=== PATIENT | female | born 1980 | race Caucasian/White ===

== ENCOUNTER 2019-06-12 08:15 | Emergency (ER) | payer OTHER ==
[2019-06-12 08:19] VITALS: BP 127/78
--- NOTE | 2019-06-12 08:57 | ER Document Report ---
HPI - HPI Time Seen by Provider: 06/12/19 08:40 Pain Level: 4 Notes: Patient is a 38-year-old female with a history of microdiscectomy to her low back, cholecystectomy, gastric sleeve who presents complaining of acute on chronic low back pain without injury or trauma x2 weeks. Patient states that the pain is primarily in the left side, but is bilateral. The pain does not radiate. Patient states that she has been having muscle spasm-like pain in the last couple days. Pain is worsened by bending and twisting of the trunk as well as sitting. She recently moved from different states and was lifting and moving objects. No history of IV drug abuse, diabetes, or spinal abscess. Denies drug allergies. She has been able to eat and drink without difficulty. She is urinating normally and having normal bowel movements. She did see a family doctor 2 weeks ago and had an x-ray performed at that time, but does not know the result. Denies any headache, fever, head injury, neck pain, changes in vision/speech/mentation/hearing, URI, sore throat, chest pain, palpitations, syncope, cough, shortness of breath, wheeze, dyspnea, abdominal pain, nausea/vomiting/diarrhea, urinary retention, dysuria, hematuria, loss of control of bowel or bladder, numbness/tingling, saddle anesthesia, muscle paralysis/weakness, or rash. - ROS Systems Reviewed and Negative: Yes All other systems reviewed and negative - REPRODUCTIVE Reproductive: DENIES: : Past Medical History - Social History Smoking Status: Never Smoker Family History: Reviewed & Not Pertinent Patient has suicidal ideation: No Patient has homicidal ideation: No Renal/ Medical History: Denies: Hx Peritoneal Dialysis Past Surgical History: Reports: Hx Neurologic Surgery - L-5 to S-1 microdiscectomy Vertical Provider Document - CONSTITUTIONAL Agree With Documented VS: Yes Notes: PHYSICAL EXAMINATION: GENERAL: Well-appearing, well-nourished and in no acute distress. LUNGS: Breath sounds clear to auscultation bilaterally and equal. No wheezes rales or rhonchi. HEART: Regular rate and rhythm without murmurs, rubs, gallops. ABDOMEN: Soft, nontender, nondistended abdomen. No guarding, no rebound. No masses appreciated. Normal bowel sounds present. No CVA tenderness bilaterally. No pulsatile mass Musculoskeletal: LE's b/l: FROM to passive/active. Strength 5+/5. No deficits noted. No bony tenderness of extremities. Back: FROM to passive/active. Strength 5+/5. No vertebral point tenderness, stepoffs, or deformities. No other bony tenderness, erythema, swelling, or ecchymosis. SLR negative b/l. + mild tenderness to the L-paraspinal mm b/l. Mild spasming with trigger point left side near L5. No SI jt tenderness. No foot drop Extremities: No cyanosis, clubbing, or edema b/l. Peripheral pulses 2+. Capillary refill less than 2 seconds. NEUROLOGICAL: Normal speech, normal gait. Normal sensory, motor exams. Reflexes 2+ b/l. PSYCH: Normal mood, normal affect. SKIN: Warm, Dry, normal turgor, no rashes or lesions noted. - INFECTION CONTROL TRAVEL OUTSIDE OF THE [place] IN LAST 30 DAYS: No Course - Re-evaluation Re-evalutation: 06/12/19 09:03 Patient is an afebrile, well-hydrated, 38-year-old female who presents to the ED with acute on chronic low back pain. Vitals are acceptable. PE is otherwise unremarkable for any focal neurological deficits. I did call Dr. Salcedo's office and reviewed with him the x-ray result which showed some spondylosis in the left side, otherwise unremarkable for acute pathology. Patient declined any and all medications or treatment for her discomfort. She has no significant tachycardia, tachypnea, or hypoxia. She is nontoxic-appearing and is tolerating p.o. without difficulties. There are no signs of infection. No other red flag symptoms noted. No other labs or imaging warranted at this time based on H&P. Low suspicion for any meningitis, fracture, expanding/ruptured AAA, cauda equina syndrome, epidural mass lesion/abscess, herniated disc causing severe spinal stenosis, or other systemic infection at this time. Patient is aware that his condition can change from initial presentation and that he needs monitor symptoms closely for any acute changes. Patient does not want any medications for home. Conservative measures otherwise for symptoms. Recheck with your PCM in 3-5 days. Consider consult with orthopedic/physical therapy. Return to the ED with any worsening/concerning symptoms otherwise as reviewed discharge. Patient is in agreement. - Vital Signs Vital signs: Temp Pulse Resp BP Pulse Ox 98.3 F 79 12 127/78 H 100 06/12/19 08:18 06/12/19 08:18 06/12/19 08:18 06/12/19 08:18 06/12/19 08:18 Discharge - Discharge Clinical Impression: Low back pain Qualifiers: Chronicity: acute Back pain laterality: bilateral Sciatica presence: without sciatica Qualified Code(s): M54.5 - Low back pain Condition: Stable Disposition: HOME, SELF-CARE Instructions: Low Back Pain ([facility]) Additional Instructions: Rest, Ice Tylenol/ibuprofen as needed Light stretches daily Strength exercises as able Moist heat and massage may help F/u with your PCP in 3-5 days for a recheck Consider consult(s) with Orthopedics/physical therapy for ongoing/worsening symptoms Return to the ED with any worsening symptoms and/or development of fever, headache, chest pain, palpitations, syncope, shortness of breath, trouble breathing, abdominal pain, n/v/d, blood in stool/urine, loss of control of bowel/bladder, urinary retention, muscle weakness/paralysis, saddle anesthesia, numbness/tingling, or other worsening symptoms that are concerning to you. Forms: Elevated Blood Pressure Referrals: [facility] ([facility]) [Provider Group] - Follow up as needed
== END 2019-06-12 09:05 | disposition home or self-care (01) ==
LOC: ER 08:15
DX: M54.5 Low back pain (principal); G89.29 Other chronic pain; Z98.84 Bariatric surgery status
CPT/HCPCS: 99283

== ENCOUNTER → 2019-12-07 | Outpatient (CLI) | payer OTHER ==
--- NOTE | 2019-12-07 14:56 | RADIOLOGY REPORT (SQ) ---
EXAM DESCRIPTION: MRI LUMBAR SPINE COMBO COMPLETED DATE/TIME: 12/07/2019 7:57 am REASON FOR STUDY: LUMBAR RADICULOPATHY (M54.16) M54.16 RADICULOPATHY, LUMBAR REGION COMPARISON: None. TECHNIQUE: Sagittal and Axial imaging includes T1, T1 post gadolinium, T2, STIR and gradient echo se quences. Coronal T2/HASTE imaging. CONTRAST TYPE AND DOSE: 10 mL Dotarem. RENAL FUNCTION: Not indicated. ACR Type II contrast agent associated with few, if any, unconfounded cases of NSF LIMITATIONS: None. FINDINGS: VISUALIZED UPPER ABDOMEN: Limited evaluation. No acute or suspicious findings suggested. SEGMENTATION: No transitional anatomy. The lowest well-developed disc space is labeled L5-S1. ALIGNMENT: Anatomic. VERTEBRAE: Intact. No fractures. BONE MARROW: Normal. No marrow replacement or reactive changes. DISC SIGNAL: Diffuse decreased T2 weighted intervertebral disc signal at L4-5. Disc space loss of he ight at L4-5 POSTERIOR ELEMENTS: Old right laminectomy at L4 HARDWARE: No disc space prosthesis. CORD AND CONUS: Normal in size and signal intensity. Conus at the T12 level. SOFT TISSUES: No aortic aneurysm seen. No bulky retroperitoneal adenopathy or mass. No paraspinal mas s or fluid. T11-12: At the upper edge of the field of view. Mild bilateral facet hypertrophy without central or foraminal stenosis. T12-L1: Mild bilateral facet hypertrophy without central or foraminal stenosis. L1-L2: Mild bilateral facet hypertrophy without significant central or foraminal stenosis L2-L3: Mild bilateral facet hypertrophy without significant central or foraminal stenosis L3-L4: Mild bilateral facet hypertrophy without significant central or foraminal stenosis. L4-L5: Old prior right laminectomy/partial facetectomy. There is a small central disc protrusion eff acing the ventral epidural fat and abutting the thecal sac at the takeoff of the bilateral L5 nerve r oots in the lateral recess. This is best shown on axial image . No significant central canal n arrowing or proximal right L5 nerve root impingement. Elsewhere at L4-5, there is mild bilateral inferior foraminal narrowing without exit L4 nerve root im pingement. L5-S1: No central or foraminal stenosis. SACRUM: Visualized upper sacrum intact. ENHANCEMENT: There is minimal enhancement along the posterior rightward L4-5 disc margin. No abnorma l nerve root enhancement. OTHER: No other significant findings. IMPRESSION: Old right laminectomy with persistent central posterior disc protrusion, flattening the thecal sac near the takeoff of the bilateral L5 nerve roots in the lateral recess TECHNICAL DOCUMENTATION: JOB ID: [id number] [employer]- All Rights Reserved Reading location - IP/workstation name: [email or web address]
== END ==
LOC: RAD 06:30
PROVIDERS: ATTEND Family Medicine
DX: M51.16 Intervertebral disc disorders with radiculopathy, lumbar region (principal)
CPT/HCPCS: 72158; A9576

== ENCOUNTER 2020-09-11 08:51 | Emergency (ER) | payer OTHER ==
[2020-09-11] MEDS ORDERED: HYDROCODONE/ACETAMINOPHEN 5-325 MG TABLET PO ONE (10:59)
--- NOTE | 2020-09-11 11:02 | ER Document Report ---
ED Medical Screen (RME) - General Chief Complaint: Tremor Stated Complaint: MUSCLE SPASMS Time Seen by Provider: 09/11/20 10:53 Primary Care Provider: ZHANNA LACEY MD [Primary Care Provider] - Follow up as needed Notes: Patient presents complaining of low back pain. Patient states she fell 4 weeks ago while trying to change a tire. Patient states that last night she got out of bed and her left leg gave out on her. Patient with lower back pain that radiates to the left lower extremity. Patient reports some urinary hesitancy symptoms. I have greeted and performed a rapid initial assessment of this patient. A comprehensive ED assessment and evaluation of the patient, analysis of test results and completion of the medical decision making process will be conducted by additional ED providers. TRAVEL OUTSIDE OF THE [place] IN LAST 30 DAYS: No - Related Data Allergies/Adverse Reactions: No Known Allergies Allergy (Verified 06/12/19 08:15) Past Medical History Renal/ Medical History: Denies: Hx Peritoneal Dialysis Past Surgical History: Reports: Hx Neurologic Surgery - L-5 to S-1 microdiscectomy Physical Exam - Vital signs Vitals: Temp Pulse Resp BP Pulse Ox 98.2 F 114 H 16 132/79 H 100 09/11/20 09:22 09/11/20 09:22 09/11/20 09:22 09/11/20 09:22 09/11/20 09:22 - Back Back: Vertebra tenderness - Lower lumbar tenderness, patient guards with attempts at standing. Course - Vital Signs Vital signs: Temp Pulse Resp BP Pulse Ox 98.2 F 114 H 16 132/79 H 100 09/11/20 09:22 09/11/20 09:22 09/11/20 09:22 09/11/20 09:22 09/11/20 09:22 Doctor's Discharge - Discharge Referrals: ZHANNA LACEY MD [Primary Care Provider] - Follow up as needed
--- NOTE | 2020-09-11 11:56 | RADIOLOGY REPORT (SQ) ---
EXAM DESCRIPTION: L SPINE WHOLE IMAGES COMPLETED DATE/TIME: 09/11/2020 11:43 am REASON FOR STUDY: low back pain, fall COMPARISON: None. NUMBER OF VIEWS: Five views including obliques. TECHNIQUE: AP, lateral, oblique, and sacral radiographic images acquired of the lumbar spine. LIMITATIONS: None. FINDINGS: MINERALIZATION: Normal. SEGMENTATION: Normal. No transitional anatomy. ALIGNMENT: Normal. VERTEBRAE: Maintained height. No fracture or worrisome bone lesion. DISCS: Degenerative disc disease with disc space narrowing L4-5 and L5-S1. POSTERIOR ELEMENTS: Pedicles and facets are intact. No pars defect or posterior arch defects. HARDWARE: None in the spine. PARASPINAL SOFT TISSUES: Normal. PELVIS: Intact as visualized. No fractures or worrisome bone lesions. SI joints intact. OTHER: No other significant finding. IMPRESSION: L4-5 and L5-S1 degenerative disc disease. TECHNICAL DOCUMENTATION: JOB ID: [id number] 2010 [employer]- All Rights Reserved Reading location - IP/workstation name: [email or web address]
[2020-09-11] MEDS ORDERED: LORAZEPAM INJ 2 MG/1 ML VIAL IV ONE (12:45)
[2020-09-11] MEDS ORDERED: KETOROLAC TROMETHAMINE INJ/PF 30 MG/1 ML SDV IV ONE (12:45)
[2020-09-11] MEDS ORDERED: DEXAMETHASONE SOD PHOS INJ 10 MG/1 ML VIAL IV ONE (12:49)
[2020-09-11 13:41] LABS: ABSOLUTE LYMPHOCYTES (AUTO) 0.5 10^3/uL (0.5-4.7); ABSOLUTE MONOCYTES (AUTO) 0.2 10^3/uL (0.1-1.4); ABSOLUTE NEUT (AUTO) 7.3 10^3/uL (1.7-8.2); BASOPHILS % (AUTO) 0.2 % (0-2); EOSINOPHILS % (AUTO) 0.2 % (0-6); HEMOGLOBIN 13.7 g/dL (12.0-15.5); LYMPHOCYTES % (AUTO) 6.2 % (13-45); MEAN CORPUSCULAR HGB CONC 36.1 g/dL (32.0-36.0); MEAN CORPUSCULAR VOLUME 83 fl (80-97); MONOCYTES % (AUTO) 2.6 % (3-13); PLATELET COUNT 250 10^3/uL (150-450); RED BLOOD COUNT 4.57 10^6/uL (3.72-5.28); RED CELL DISTRIBUTION WIDTH 13.2 % (11.5-14.0); SEGMENTED NEUTROPHILS % (AUTO) 90.8 % (42-78); TOTAL CELLS COUNTED % (AUTO) 100 %
[2020-09-11 13:43] LABS: ANION GAP 12 (5-19); BLOOD UREA NITROGEN 15 mg/dL (7-20); CALCIUM 10.2 mg/dL (8.4-10.2); CARBON DIOXIDE 25 mmol/L (22-30); CHLORIDE 100 mmol/L (98-107); GLUCOSE 100 mg/dL (75-110); POTASSIUM 3.9 mmol/L (3.6-5.0)
--- NOTE | 2020-09-11 15:02 | RADIOLOGY REPORT (SQ) ---
EXAM DESCRIPTION: MRI LUMBAR SPINE COMBO IMAGES COMPLETED DATE/TIME: 09/11/2020 2:34 pm REASON FOR STUDY: radicular pain LLE/ bladder dysfunction COMPARISON: Lumbar spine radiographs earlier same day and MRI lumbar spine 12/07/2019 TECHNIQUE: Sagittal and Axial imaging includes T1, T2, STIR and gradient echo sequences. Coronal T2/ HASTE imaging. LIMITATIONS: Moderate motion artifact is present on the axial sequences. FINDINGS: VISUALIZED UPPER ABDOMEN: Limited evaluation. No acute or suspicious findings suggested. SEGMENTATION: No transitional anatomy. The lowest well-developed disc space is labeled L5-S1. ALIGNMENT: Anatomic. VERTEBRAE: Intact. BONE MARROW: Normal. No marrow replacement or reactive changes. DISC SIGNAL: Moderate disc height loss at L4-L5 and to a lesser degree at L5-S1. POSTERIOR ELEMENTS: Generally intact. Previously described right laminotomy at L4-L5. No pars defe ct evident. HARDWARE: None in the spine. CORD AND CONUS: Normal in size and signal intensity. Conus at the appropriate level. SOFT TISSUES: No aortic aneurysm seen. No bulky retroperitoneal adenopathy or mass. No paraspinal mas s or fluid. L2-L3: Mild bilateral facet hypertrophy. No significant spinal stenosis or exit foraminal stenosis. L3-L4: Mild bilateral facet hypertrophy. No significant spinal stenosis or exit foraminal stenosis. L4-L5: There has been interval development of a large central/left central disc extrusion with inferi or migration of disc material extending approximately 1.4 cm caudally. This extruded disc material c ontacts the transiting left L5 nerve root in the subarticular zone. L5-S1: No significant spinal stenosis or exit foraminal stenosis. LOWER THORACIC: Incompletely imaged. No stenosis seen. SACRUM: Visualized upper sacrum intact. OTHER: No other significant findings. IMPRESSION: Large disc extrusion at L4-L5 with 1.4 cm of caudal migration of disc material contactin g the transiting left L5 nerve root in the subarticular zone. This patient may benefit from spine carlin rgery consultation. TECHNICAL DOCUMENTATION: JOB ID: [id number] 2010 [employer]- All Rights Reserved Reading location - IP/workstation name: [email or web address]
--- NOTE | 2020-09-11 15:32 | ER Document Report ---
ED General - General Chief Complaint: Back Pain Stated Complaint: MUSCLE SPASMS Time Seen by Provider: 09/11/20 10:53 Primary Care Provider: ZHANNA LACEY MD [Primary Care Provider] - Follow up as needed TRAVEL OUTSIDE OF THE [place] IN LAST 30 DAYS: No - HPI Notes: Chief complaint: Low back pain and left lower extremity pain History of present illness: The patient is a 40-year-old female who presented to the ER with severe left lower back pain. Pt reports a history of sciatica and microdisectomy to L5-S1 [place] 2016 [place] Pt says she has had 2 falls over the past 4 weeks. The first of these occurred when she was trying to change a tire by herself. Pt reports she was take by ambulance to [facility] and says she was not given an x-ray at that time and was just given pain medication upon discharge. Pt denies taking pain medication today. Currently states that she has had "giving way" of the left lower extremity today and says the entire extremity is numb. She also says she has had some urinary hesitancy. - Related Data Allergies/Adverse Reactions: No Known Allergies Allergy (Verified 06/12/19 08:15) Past Medical History - General Information source: Patient, [facility] Records - Social History Smoking Status: Never Smoker Chew tobacco use (# tins/day): No Frequency of alcohol use: None Drug Abuse: None Family History: Reviewed & Not Pertinent Renal/ Medical History: Denies: Hx Peritoneal Dialysis Past Surgical History: Reports: Hx Neurologic Surgery - L-5 to S-1 microdis cectomy Review of Systems - Review of Systems Notes: Constitutional: Negative for fever. HENT: Negative for sore throat. Eyes: Negative for visual changes. Cardiovascular: Negative for chest pain. Respiratory: Negative for shortness of breath. Gastrointestinal: Negative for abdominal pain, vomiting or diarrhea. Genitourinary: As per HPI. Musculoskeletal: As per HPI. Skin: Negative for rash. Neurological: As per HPI. 10 point ROS negative except as marked above and in HPI. Physical Exam - Vital signs Vitals: Temp Pulse Resp BP Pulse Ox 98.2 F 114 H 16 132/79 H 100 09/11/20 09:22 09/11/20 09:22 09/11/20 09:22 09/11/20 09:22 09/11/20 09:22 - Notes Notes: GENERAL: Slender female approximately stated age who appears to be in severe pain holding left lower back area and complaining of severe muscle spasm and pain into her left leg. SKIN: Good turgor no rashes. HEAD: Normocephalic atraumatic. EYES: PERRLA. EOMI. Conjunctivae and sclerae clear. EARS: CANALS AND TMS CLEAR. NOSE: CLEAR. MOUTH: Moist mucosa. Good dentition. No stridor or edema. No drooling. NECK: Supple. No masses or thyromegaly. No adenopathy. Carotids 2+ without bruits. No JVD. BACK: Moderate spasm left lumbar area. Straight leg raising test is positive at 15 degrees elevation on the left. CHEST: Respirations unlabored. Breath sounds clear and symmetrical. HEART: Regular rhythm. No murmur gallop or rub. ABDOMEN: Soft nontender without masses, organomegaly or rebound. Bowel sounds normally active. No bruits. GENITALIA: Deferred. EXTREMITIES: No edema. No calf tenderness. Cap refill less than 1.5 seconds. Dorsalis pedis and posterior tibial pulses 3+ and symmetrical. NEUROLOGICAL: GCS 15. Alert and oriented x3. Fluent speech. Cranial nerves II through XII intact. Sensation is diminished left lower extremity below the knee where she describes "[id number]" sensation. Deep tendon reflexes 1+ and symmetrical. Initial motor testing was unsatisfactory due to patient's level of pain. After she was medicated for pain she has preserved plantar flexion and dorsiflexion on the left with some weakness of extension of the knee on the left. Normal tone. PSYCHIATRIC: Appropriate affect. Course - Vital Signs Vital signs: Temp Pulse Resp BP Pulse Ox 98.6 F 86 18 135/83 H 98 09/11/20 15:11 09/11/20 15:11 09/11/20 15:11 09/11/20 15:11 09/11/20 15:11 - Laboratory Result Diagrams: 09/11/20 13:15 09/11/20 13:15 Laboratory results interpreted by me: 09/11/20 09/11/20 13:15 13:15 MCHC 36.1 H Lymph % (Auto) 6.2 L [place] % (Auto) 2.6 L Seg Neutrophils % 90.8 H Sodium 136.5 L Discharge - Discharge Clinical Impression: Sciatica Qualifiers: Laterality: left Qualified Code(s): M54.32 - Sciatica, left side Condition: Stable Disposition: HOME, SELF-CARE Additional Instructions: Sciatica Your symptoms suggest "sciatica." The pain of sciatica typically radiates down the leg. Numbness in the foot or calf may also occur. Sciatica is caused by irritation of the sciatic nerve or its branches. The irritation can be due to a herniated disk in the spine, swelling and inflammation in the muscles surrounding the sciatic nerve, or direct injury of the nerve itself. Most cases of sciatica will resolve with medical treatment. Bed rest is usually recommended initially. Surgery is only necessary when the condition will not improve with rest and antiinflammatory medication. Muscle relaxers are often given if muscle soreness is present. A CAT scan of the back may be performed if a herniated disk is suspected. Re-examination is necessary if you develop increasing numbness, localized weakness in the foot or ankle, or if the pain does not respond to rest. Return here as needed for new or worsening symptoms: Pain that is worsening or unimproved Uncontrolled vomiting High fever or shaking chills Overall worsening Contact Dr. Grimes consist neurosurgery) at the neurosurgery clinic at [facility] for follow-up this week. Prescriptions: Prednisone [Deltasone 20 mg Tablet] 2 tab PO DAILY 5 Days tablet Cyclobenzaprine HCl [Flexeril 10 mg Tablet] 10 mg PO TIDP PRN #15 tab PRN Reason: Oxycodone HCl/Acetaminophen [Percocet 5-325 mg Tablet] 2 tab PO ASDIR PRN #25 tab PRN Reason: Referrals: ZHANNA LACEY MD [Primary Care Provider] - Follow up as needed
[2020-09-11 17:09] VITALS: BP 130/70
== END 2020-09-11 17:09 | disposition home or self-care (01) ==
LOC: ER 08:51
DX: M51.16 Intervertebral disc disorders with radiculopathy, lumbar region (principal); Z98.890 Other specified postprocedural states; R20.0 Anesthesia of skin; R39.11 Hesitancy of micturition
CPT/HCPCS: 99285; 96374; 96375; 36415; 85025; 80048; 72158; 72110; A9576; J1885; J2060; J1100